=== PATIENT | female | born 1950 | race Caucasian/White ===

== ENCOUNTER 2019-01-12 00:18 | Inpatient (IN) | payer MEDICARE ==
[2019-01-11 16:26] LABS: INR 1.01
[~2019-01-12] VITALS: Ht 160 cm; Wt 68.5 kg
[2019-01-12] VITALS (14 sets, daily range): BP systolic 103–138; BP diastolic 56–81
[~2019-01-12 00:18] MED LIST: ACET-1966 PO; EZET10TA41 PO; IBUP200C74 PO; MELA3TAB31 PO; MULT-1335 PO; OMEG-36 PO; PSYL0.5241 PO
--- NOTE | 2019-01-12 04:59 | LEVENE H&P ---
DATE OF ADMISSION: January 12, 2019 IDENTIFICATION/CHIEF COMPLAINT Shi is a 68-year-old woman with chief complaint of left hip pain. HISTORY OF PRESENT ILLNESS Patient with longstanding history of hip arthritis, progressively painful and debilitating, refractory to conservative care. Surgery is indicated to relieve symptoms after failure of nonoperative measures. PAST MEDICAL HISTORY Notable for hypercholesterolemia. ALLERGIES She has no known drug allergies. CURRENT MEDICATIONS 1. Zetia 10 mg p.o. daily. 2. Melatonin 3 mg p.o. daily. 3. A variety of vitamins. PAST SURGICAL HISTORY Notable for x2 and treatment of a broken wrist. FAMILY HISTORY Notable for father with heart disease and cancer, mother with COPD. SOCIAL HISTORY Negative for tobacco use. Drinks alcohol on a social basis. REVIEW OF SYSTEMS Noncontributory. PHYSICAL EXAMINATION GENERAL: This is a well-developed, well-nourished female who appears stated age. HEENT: Normocephalic, atraumatic. NECK: Supple. LUNGS: Clear. HEART: Regular. ABDOMEN: Soft. ORTHOPEDIC: Patient has stiffness in her hip. She has pain at limits of combined flexion and rotation. Hip girdle strength is intact. Skin envelope is intact. Calves nontender. Neurovascular function intact. Radiographs demonstrate end-stage hip arthritis. ASSESSMENT Left hip degenerative joint disease, refractory to conservative care. PLAN Per patient request, will proceed with total hip arthroplasty. Nature of the procedure, risks, benefits, and the anticipated rehab course were outlined. Risks include but are not limited to , major medical or anesthetic complication, infection, neurovascular injury, blood transfusion, leg length discrepancy. The nature of the procedure is reviewed at some length. All of her questions are answered. A signed permit is placed in the chart. No guarantees are given or implied. [facility]
[2019-01-12] MEDS ORDERED: CELECOXIB 200 MG CAP PO ONE (11:15)
[2019-01-12] MEDS ORDERED: ACETAMINOPHEN 500 MG TAB PO ONE (11:15)
[2019-01-12] MEDS ORDERED: ceFAZolin(*) 1 GM VIAL 1 GM in NS(*) 0.9% 100 ML MINI-BAG 100 ML IVPB ONE (11:15)
[2019-01-12] MEDS ORDERED: LIDOCAINE/SOD BICARB 8.4% SYR ID ONE (11:15)
[2019-01-12] MEDS ORDERED: ROPIVACAINE/EPI/CLONIDINE/KET 50 ML SYRINGE INJ ONE (11:15)
[2019-01-12] MEDS ORDERED: MIDAZOLAM 2 MG/2 ML VIAL IVP PRN (11:15)
[2019-01-12] MEDS ORDERED: TRANEXAMIC AC 1000 MG/10ML SDV 1,000 MG in DEXTROSE 5% 50 ML BAG 50 ML IV ONE (11:15)
[2019-01-12] MEDS ORDERED: NORMOSOL R SOLN(*) 1000 ML BAG 1,000 ML IV PRN ×2 (11:15→16:00)
[2019-01-12] MEDS ORDERED: PREGABALIN 150 MG CAPSULE PO ONE (11:15)
[2019-01-12] MEDS ORDERED: FAMOTIDINE 20 MG TAB PO ONE (11:15)
[2019-01-12] MEDS ORDERED: KETAMINE HCL 500 MG/10 ML VIAL ONE (12:19)
[2019-01-12] MEDS ORDERED: fentaNYL CITR 100 MCG/2 ML AMP ONE (12:19)
[2019-01-12] MEDS ORDERED: DEXAMETHASONE SOD PHOS 10MG/ML ONE (12:20)
[2019-01-12] MEDS ORDERED: ONDANSETRON 4 MG/2 ML VIAL ONE (12:20)
[2019-01-12] MEDS ORDERED: LIDOCAINE MPF 1% 5 ML VIAL ONE (12:20)
[2019-01-12] MEDS ORDERED: PROPOFOL EMUL(*) 10MG/ML 20 ML 20 ML ONE (12:20)
[2019-01-12] MEDS ORDERED: VANCOMYCIN 1 GM VIAL ONE (13:08)
[2019-01-12] MEDS ORDERED: PHENYLEPHRINE 10 MG/1 ML VIAL ONE (13:52)
[2019-01-12] MEDS ORDERED: ePHEDrine 25 MG/5 ML DISP.SYR IVP ONE (14:18)
[2019-01-12] MEDS ORDERED: ACETAMINOPHEN 325 MG TAB PO PRN (16:00)
[2019-01-12] MEDS ORDERED: MAGNESIUM HYDROXIDE* 30ML UDCP PO PRN (16:00)
[2019-01-12] MEDS ORDERED: diphenhydrAMINE 25 MG CAP PO PRN (16:00)
[2019-01-12] MEDS ORDERED: BISACODYL 10 MG SUPP PR PRN (16:00)
[2019-01-12] MEDS ORDERED: DIAZEPAM 5 MG TAB PO PRN (16:00)
[2019-01-12] MEDS ORDERED: FLUSH 10 ML SYR IVP PRN (16:00)
[2019-01-12] MEDS ORDERED: PROMETHAZINE 25 MG/ML 1 ML AMP IVP PRN (16:00)
[2019-01-12] MEDS ORDERED: ZOLPIDEM TARTRATE 5 MG TAB PO PRN (16:00)
[2019-01-12] MEDS ORDERED: diphenhydrAMINE 50 MG/ML VIAL IVP PRN (16:00)
[2019-01-12] MEDS ORDERED: BENZOCAINE/MENTHOL 1 EACH LOZG PO PRN (16:00)
--- NOTE | 2019-01-12 16:53 | RADIOLOGY IMAGING REPORT ---
FACILITY: [facility] PATIENT NAME: Shi Pino : 1950 MR: [id number] V: [id number] EXAM DATE: ORDERING PHYSICIAN: ANTOINE LINN TECHNOLOGIST: Location: [facility] Patient: Shi Pino : 1950 Visit/Account:[id number] Date of Sevice: 01/12/2019 PELVIS Indication: POST-OP PLACEMENT Comparison: None. Findings: There are postoperative changes from a left total hip arthroplasty. Hardware is in good pos ition. Proximal right femur and the bones the pelvis are intact. Soft tissues demonstrate subcutaneou s gas from recent left hip surgery. IMPRESSION: Postoperative changes left total hip arthroplasty. Report Dictated By: Jonathan Sinclair at 01/12/2019 4:47 PM Report E-Signed By: Jonathan Sinclair at 01/12/2019 4:48 PM WSN:[id number]
--- NOTE | 2019-01-12 17:29 | NUR ---
Physical Therapy Impression PT eval completed. Review of CARLOS precautions and ther ex. Physical Therapy Goals 1. Pt to be modified indep for bed mobility and sup<>sit trnsfrs 2. Pt to be modified indep with sit to/from stand transfers 3. Pt to ambulate x 150' with least restrictive device 4. Pt to juliane up/down 4 steps with rail and modified indep Patient's Goals
--- NOTE | 2019-01-12 17:36 | Hospitalist Consultation ---
History of Present Illness Requesting Physician Dr. Matt Reason for Consult Medical Management Chief Complaint s/p left hip replacement History of Present Illness She was admitted s/p left hip replacement. It is reported the surgery went well and without complication. History Problems: (1) Hyperlipidemia Status: Chronic Home Meds Reported Medications Ibuprofen (ADVIL) 200 Mg Capsule, 1-2 CAP PO PRN PRN for PAIN, CAPSULE 01/06/19 Acetaminophen (TYLENOL) 325 Mg Tablet, 325 MG PO PRN, TAB 01/06/19 Psyllium Husk (METAMUCIL) 0.52 Gm Capsule, 0.52 GM PO PRN, CAPSULE 01/06/19 O'Brien-3 Fatty Acids/Fish Oil (OMEGA 3 FISH OIL SOFTGEL) 1 Each Capsule., 1 EA CH PO QDAY 01/06/19 Multivitamin With Minerals (MULTIPLE VITAMIN) 1 Each Tablet, 1 EACH PO QDAY, TAB 01/06/19 Melatonin (MELATONIN) 3 Mg Tablet, 3 MG PO HS 01/06/19 Ezetimibe (ZETIA) 10 Mg Tablet, 10 MG PO QDAY, TAB 01/06/19 Allergies: Coded Allergies: No Known Drug Allergies (Unverified , 01/06/19) Patient History: FH: COPD (chronic obstructive pulmonary disease) MOTHER FH: cardiovascular disease FATHER Hx Smoking: No Exposure to Second Hand Smoke?: Yes (CHILDHOOD) Hx Alcohol Use: Yes Alcohol Used: Wine Review of Systems All Systems Reviewed/Normal: Yes, Except as Noted Exam Vital Signs Vital Signs Date Time Temp Pulse Resp B/P (MAP) Pulse Ox O2 Delivery O2 Flow Rate FiO2 01/12/19 16:45 73 18 97 01/12/19 09:45 98.1 138/81 (100) Room Air General Appearance: Alert, Awake, No Acute Distress, Afebrile Neuro: No Gross deficits Cardiovascular: Regular Rate and Rhythm Respiratory: No Respiratory Distress, Clear to Auscultation Psych: Alert & Oriented X3, Appropriate Mood & Affect Assessment and Plan Problems: (1) Status post left hip replacement Status: Acute Assessment & Plan: Followed by Dr. Matt. She will be placed on Aspirin for DVT prophylaxis. (2) Hyperlipidemia Status: Chronic Assessment & Plan: Continue chronic Zetia. Venous Thromboembolism Antithrombotics Is Pt On Any Antithrombotics?: No WALT KAPADIA CERTIFIED GENETIC COUNSELOR January 12, 2019 17:36
[2019-01-12] MEDS ORDERED: PSYL660P5 (17:38)
[2019-01-12] MEDS: CELECOXIB 200 MG CAP PO SCH (17:45)
[2019-01-12] MEDS: EZETIMIBE 10 MG TAB PO SCH (21:01)
--- NOTE | 2019-01-12 22:06 | OPERATIVE REPORT 1 ---
EVENT DATE: January 12, 2019 SURGEON: Aaron Matt MD ANESTHESIOLOGIST: Denyns Quintanilla MD ANESTHESIA: General plus spinal. MONTESSORI LEAD TEACHER: Joseph Gordon PA-C PREOPERATIVE DIAGNOSIS Left hip degenerative joint disease. POSTOPERATIVE DIAGNOSIS Left hip degenerative joint disease. PROCEDURE PERFORMED Left total hip arthroplasty. ESTIMATED BLOOD LOSS 300 mL. DRAINS None. SPECIMENS None. COMPLICATIONS None apparent. IMPLANTS USED [place] system with an Accolade II 132-degree neck angle hip stem size 4 with a Biolox Delta Ceramic V40 femoral head, 36 mm, +0 standard neck length, a Trident PSL MOMIN cluster acetabular shell 48 mm, with a Trident X3 zero-degree polyethylene liner to accommodate a 36 mm head. INDICATIONS Shi is a 68-year-old woman with intractable pain related to end-stage hip arthritis. Surgery is indicated to relieve symptoms after failure of nonoperative measures. DESCRIPTION OF PROCEDURE Patient is taken to the operating room, placed supine on the operating table. General anesthesia is induced after spinal block is administered by the anesthesiologist. Antibiotics and TXA are administered IV. Patient is positioned in the right lateral decubitus on a well-padded pegboard. Pelvis is secured in a vertical position. All bony prominences and superficial nerves are well padded. Left hip girdle and lower extremity are prepped and draped in the usual sterile fashion for hip arthroplasty. A posterolateral approach is made, carried down through the skin and subcutaneous tissue down to the deep fascia. Fascia is incised over the tip of the trochanter, extended distally in line with the femur, proximally in line with the biju fibers. Biju fibers are split bluntly. Trochanteric bursa is excised. Interval between the abductor and external rotator is identified. Abductor mechanism is protected with a blunt Hohmann. An L capsulotomy is made just with the horizontal limb above the piriformis, releasing the external rotators and the capsule as a single freelance displayer the back of the femur. These are tagged with #2 Vicryl for later anatomic reattachment. Femoral head is dislocated. End-stage arthritis is noted. A 1.5 cm neck cut is made consistent with preoperative planning. Femoral head is extracted. Femur is translocated anteriorly. Charley-acetabular retractors are placed with the tips down on bone to avoid injury to critical neurovascular structures. Labrum and pulvinar are excised. A 44 mm reamer is used to medialize through the true medial wall of the acetabulum. This is expanded in 2 mm increments up to 48 where nice rim contact is obtained. The 48 trial fits nicely. A 49 is used to open the throat of the acetabulum to accommodate the raised rim liner. Surface is lavaged. The actual shell is impacted in approximately 40 degrees of lateral opening and 15 or so degrees of anteversion using the transverse acetabular ligament, internal bony landmarks, and extracorporeal guide to guide the socket placement. Rock-solid fixation is achieved. No adjuvant fixation felt to be needed. Shell is lavaged and dried, and the actual liner is locked into the shell. Attention is turned to femoral preparation. The superior neck is resected with a BeneStream cutter. A Evelin awl finds the canal. Tapered broaching is performed up to 4 where the 4 broach has nice stable solid fit. Trial reduction is performed off this. Good congregational of soft tissue tension and stability are achievable. The broach is removed. The actual stem is impacted and seats at the same height. Trial reduction performed with various neck lengths. Standard is felt to be optimal. The Nunez taper is lavaged and dried. The actual head is impacted onto the Nunez taper. Joint is reduced. Wound is copiously lavaged including Irrisept, washed out with saline. The deep capsule and external rotators are reapproximated through drill holes in the posterior femur with the previously placed Vicryl suture. Vancomycin powder is placed deep in the wound. Deep fascia closed distally with #2 Ethibond, proximally with #2 Vicryl. Subcutaneous tissue is lavaged. Hemostasis is assured. Derm is closed with 3-0 Vicryl and skin with surgical jhony. Xeroform is applied for a dry, sterile dressing and a hip wrap. Patient is rolled supine. Abduction pillow is placed. She is awakened from anesthesia and taken to the recovery room in stable condition having tolerated the procedure well. PLAN Standard CARLOS rehab protocol. [facility]
[2019-01-12] MEDS: ceFAZolin(*) 1 GM VIAL 1 GM in NS(*) 0.9% 100 ML MINI-BAG 100 ML IVPB SCH (22:18)
[2019-01-12] MEDS: APAP/HYDROCODONE 325/7.5 TAB PO PRN (22:28)
[2019-01-13] VITALS: BP 100/62
[2019-01-13 01:00] VITALS: BP 102/57
[2019-01-13] MEDS: APAP/HYDROCODONE 325/7.5 TAB PO PRN ×5 (02:31→21:21)
[2019-01-13 04:10] VITALS: BP 85/51
[2019-01-13] MEDS: ceFAZolin(*) 1 GM VIAL 1 GM in NS(*) 0.9% 100 ML MINI-BAG 100 ML IVPB SCH (06:22)
[2019-01-13 06:49] VITALS: BP 100/56
[2019-01-13] MEDS: ASPIRIN 325 MG TAB PO SCH (08:05)
[2019-01-13] MEDS: CELECOXIB 200 MG CAP PO SCH ×2 (08:05→17:13)
--- NOTE | 2019-01-13 10:49 | Hospitalist Progress Note ---
Subjective Progress Notes Subjective RICHA overnight, continues work with PT. Physical Exam Vital Signs Date Time Temp Pulse Resp B/P (MAP) Pulse Ox O2 Delivery O2 Flow Rate FiO2 01/13/19 06:49 98.6 74 16 100/56 (71) 94 Nasal Cannula 0.5 Intake and Output 01/13/19 07:00 Intake Total 3631 ml Output Total 150 ml Balance 3481 ml Intake Oral 750 ml IV Total 2831 ml Other 50 ml Output Estimated Blood Loss 150 ml # Voids 2 # Emeses 1 General Appearance: Alert, Awake, No Acute Distress Neuro: No Gross deficits Cardiovascular: Normal Rhythm & Peripheral Pulses Respiratory: No Respiratory Distress Extremities: Soft and Non Tender, Warm, Pulses Integumentary: Skin Intact without Lesion / Mass Psych: Alert & Oriented X3 Assessment and Plan Problems: (1) Status post left hip replacement Status: Acute Assessment & Plan: Followed by Dr. Matt. She will be placed on Aspirin for DVT prophylaxis. (2) Hyperlipidemia Status: Chronic Assessment & Plan: Continue chronic Zetia. Exam Sepsis Risk: No Definite Risk PERRY NAIN QUEZADA DO January 13, 2019 10:49
--- NOTE | 2019-01-13 13:23 | NUR ---
Occupational Therapy Impression Pt. has met all OT goals. Pt. ready for d/c to home when medically appropriate and has met PT goals. Occupational Therapy Goals Patient's Goal
[2019-01-13 13:38] VITALS: BP 95/53
[2019-01-13 19:46] VITALS: BP 117/71
[2019-01-13] MEDS: DOCUSATE SODIUM 100 MG CAP PO SCH (21:21)
[2019-01-13] MEDS: EZETIMIBE 10 MG TAB PO SCH (21:21)
[2019-01-14] MEDS: APAP/HYDROCODONE 325/7.5 TAB PO PRN ×2 (02:35→10:08)
[2019-01-14 02:36] VITALS: BP 110/59
[2019-01-14 06:41] VITALS: BP 113/57
[2019-01-14] MEDS: ASPIRIN 325 MG TAB PO SCH (08:46)
[2019-01-14] MEDS: DOCUSATE SODIUM 100 MG CAP PO SCH (08:46)
[2019-01-14] MEDS: CELECOXIB 200 MG CAP PO SCH (08:46)
[2019-01-14] MEDS ORDERED: ASPI-757 PO (09:00)
[2019-01-14] MEDS ORDERED: PSYLLIUM 28% 1 PACKET PO SCH (09:00)
[2019-01-14] MEDS ORDERED: HYDR-654 PO (09:23)
--- NOTE | 2019-01-14 10:47 | Hospitalist Progress Note ---
Subjective Progress Notes Subjective She was admitted s/p hip replacement. She had no acute events overnight. She would like to go home today. Patient Complains of: Cardiovascular: No: Chest Pain Respiratory: No: Shortness of Breath Physical Exam Vital Signs Date Time Temp Pulse Resp B/P (MAP) Pulse Ox O2 Delivery O2 Flow Rate FiO2 01/14/19 06:41 98.8 72 16 113/57 (75) 93 Room Air 01/13/19 07:09 1.0 Intake and Output 01/14/19 07:00 Intake Total 1520 ml Balance 1520 ml Intake Oral 1520 ml # Voids 6 General Appearance: Alert, Awake, No Acute Distress, Afebrile Neuro: No Gross deficits Cardiovascular: Regular Rate and Rhythm Respiratory: No Respiratory Distress, Clear to Auscultation GI: Soft and Non-Tender Psych: Alert & Oriented X3, Appropriate Mood & Affect Assessment and Plan Problems: (1) Status post left hip replacement Status: Acute Assessment & Plan: Followed by Dr. Matt. She will be placed on Aspirin for DVT prophylaxis. (2) Hyperlipidemia Status: Chronic Assessment & Plan: Continue chronic Zetia. Exam Sepsis Risk: No Definite Risk WALT KAPADIA IDENTITY MANAGEMENT DEVELOPER January 14, 2019 10:47
== END 2019-01-14 10:20 | disposition home or self-care (01) | DRG 470 ==
LOC: OR 00:18 → MED 17:15
PROVIDERS: ADMIT Orthopaedic Surgery; ATTEND Orthopaedic Surgery
PROC: 0SRB04A Replacement of Left Hip Joint with Ceramic on Polyethylene Synthetic Substitute, Uncemented, Open Approach (ICD-10-PCS; principal; 2019-01-12 13:39)
DX: M16.12 Unilateral primary osteoarthritis, left hip (principal); E78.5 Hyperlipidemia, unspecified
CPT/HCPCS: 36415; 72170; 85610; 86850; 86900; 86901; 97161; J0690; J1100; J2001; J2250; J2370; J2405; J2550; J2704; J3010; J3370; J7060